=== PATIENT | male | born 1980 | race Two or more races ===

== ENCOUNTER 2018-09-05 12:03 | Emergency (ER) | payer BC, MEDICAID ==
[~2018-09-05] VITALS: Ht 172.7 cm; Wt 70.3 kg
[2018-09-05 12:10] VITALS: BP 136/82
[2018-09-05] MEDS ORDERED: HYDROmorphone HCL 2 MG/ML VL IV ONE (13:15)
[2018-09-05] MEDS ORDERED: ONDANSETRON HCL 4 MG/2 ML VIAL IV ONE (13:15)
[2018-09-05 13:43] LABS: Basophils # (auto) 0 uL; Basophils % (auto) 0.6 % (0.0-2.0); Eosinophils # (auto) 0 uL; Eosinophils % (auto) 0.8 % (0.0-7.0); Hematocrit 42.7 % (41.0-53.0); Hemoglobin 14.5 g/dL (13.5-17.5); Lymphocytes # (auto) 0.3 uL; Lymphocytes % (auto) 7.2 % (10.0-50.0); Mean Corpuscular Hemoglobin 29.3 pg (28.0-32.0); Mean Corpuscular Volume 86.2 fL (80.0-100.0); Monocytes # (auto) 0.5 uL; Monocytes % (auto) 11.3 % (0.0-12.0); Neutrophils # (auto) 3.8 uL; Neutrophils % (auto) 80.1 % (37.0-80.0); Platelet Count (auto) 187 10^3/uL (140-450); Red Blood Cells 4.96 10^6/uL (4.5-5.90); Red Cell Distribution Width 13.5 % (11.8-14.3); White Blood Cell 4.8 10^3/uL (4.4-10.8)
[2018-09-05 13:57] LABS: Potassium 3.4 mmol/L (3.5-5.1)
[2018-09-05 14:03] LABS: Albumin 4.1 g/dL (3.4-5.0); BUN/Creatinine Ratio 13.1; Bilirubin, Total 0.6 mg/dL (0.2-1.0); Calcium 8.8 mg/dL (8.5-10.1); Total Protein 7.2 g/dL (6.4-8.2)
[2018-09-05 15:00] LABS: Magnesium 1.5 mg/dL (1.6-2.6)
== END 2018-09-05 18:34 | disposition left against medical advice (07) ==
LOC: ER 12:07
DX: G35 Multiple sclerosis (principal); A69.20 Lyme disease, unspecified; R07.9 Chest pain, unspecified; F12.90 Cannabis use, unspecified, uncomplicated; Z53.29 Procedure and treatment not carried out because of patient's decision for other reasons
CPT/HCPCS: 36415; 71046; 80053; 83735; 84484; 85025; 94761

== ENCOUNTER 2022-03-22 11:14 | Emergency (ER) | payer BC, MEDICAID ==
[~2022-03-22] VITALS: Ht 175.3 cm; Wt 70.4 kg
[2022-03-22 13:43] VITALS: BP 17/66
[2022-03-22] MEDS ORDERED: diphenhdrAMINE HCL 50 MG/1 ML VL IM ONE (14:30)
[2022-03-22] MEDS ORDERED: LORazepam 0.5 MG TAB PO ONE (14:30)
[2022-03-22] MEDS ORDERED: ALPR1TAB2 PO (14:52)
[2022-03-22] MEDS ORDERED: PRED20TA2 PO (14:52)
== END 2022-03-22 15:00 | disposition home or self-care (01) ==
LOC: ER 11:14
DX: M54.16 Radiculopathy, lumbar region (principal); F12.10 Cannabis abuse, uncomplicated; Z88.8 Allergy status to other drugs, medicaments and biological substances; Z88.6 Allergy status to analgesic agent; X50.1XXA Overexertion from prolonged static or awkward postures, initial encounter; Y93.01 Activity, walking, marching and hiking; Y92.89 Other specified places as the place of occurrence of the external cause; Y99.8 Other external cause status
CPT/HCPCS: 72131; 96372; 99284; J1200